=== PATIENT | female | born 1965 | race Caucasian/White ===

== ENCOUNTER 2020-04-19 06:06 | Observation (INO) ==
--- NOTE | 2020-03-11 09:54 | PAT Medication Instructions ---
Medication Instructions Date of Service March 11, 2020 Home Medications aspirin 81 mg PO QPM atorvastatin 40 mg PO PM cholecalciferol (vitamin D3) [Vitamin D3] 125 mcg PO QPM citalopram 30 mg PO HS glimepiride 8 mg PO QAM losartan [Cozaar] 50 mg PO QPM lutein 20 mg PO QPM metformin 1,000 mg PO BID montelukast 10 mg PO QPM omega-3 fatty acids-vitamin E [Fish Oil] 1 cap PO TID omeprazole 40 mg PO QAM repaglinide 2 mg PO TID semaglutide [Ozempic] 2 mg SUBCUT WK vitamin B complex 1 tab PO QPM zinc acetate 50 mg PO QPM Continue as directed semaglutide [Ozempic] 2 mg SUBCUT WK ASK your prescriber and surgeon aspirin 81 mg PO QPM STOP taking 2 weeks before surgery (or as soon as possible if surgery is within 2 weeks) omega-3 fatty acids-vitamin E [Fish Oil] 1 cap PO TID lutein 20 mg PO QPM DO NOT take the morning of surgery glimepiride 8 mg PO QAM metformin 1,000 mg PO BID repaglinide 2 mg PO TID Take morning of surgery With a small sip of water, OTHERWISE NOTHING TO EAT OR DRINK AFTER MIDNIGHT: omeprazole 40 mg PO QAM Take evening before surgery atorvastatin 40 mg PO PM cholecalciferol (vitamin D3) [Vitamin D3] 125 mcg PO QPM citalopram 30 mg PO HS losartan [Cozaar] 50 mg PO QPM metformin 1,000 mg PO BID montelukast 10 mg PO QPM repaglinide 2 mg PO TID vitamin B complex 1 tab PO QPM zinc acetate 50 mg PO QPM Other Notes If you have any questions please call us at [phone] or [phone] or [phone] or [phone]
--- NOTE | 2020-03-15 11:42 | Anesthesiology Consultation ---
Date of Service March 15, 2020 Assessment & Plan (1) Encounter for pre-operative examination: - Per assessment on 03/15: Travel screen negative. No known COVID-19 positive contacts or current COVID-19 related symptoms. Surgeon arranging preop COVID testing. Awaiting results. - S/P L4-L5 decompression/fusion: 04/07/15: Grade view 1, MAC#3, ETT 7 at [facility] - Check BSG AM DOS Chart Review Chart Review: Acceptable Risk for Surgery and Patient seen in Pre Admission Testing Teaching & Discussion Pre-Anesthesia Teaching/Discussion Notes: Instructed NPO after midnight before surgery,except medications with 15 cc of water. Medication instructions provided according to the PAT guidelines. History Surgery Operation Date: 03/29/20 11:25 Proposed Procedures p Spinal Cord Stimulator Trial - Adis Bello DO Operation Date: 03/31/20 11:05 Proposed Procedures p Spinal Cord Stimulator Placement - Adis Bello DO Height/Weight Height: 5 ft 7 in Weight: 95.8 kg Allergies Allergy/AdvReac Type Severity Reaction Status Date / Time metaxalone Allergy Unknown SOB, Verified 03/09/20 10:21 fatigue, hives Medications Home Medications Medication Instructions Recorded Confirmed Last Taken aspirin 81 mg PO QPM 03/09/20 03/09/20 Unknown atorvastatin 40 mg PO PM 03/09/20 03/09/20 Unknown cholecalciferol (vitamin D3) 125 mcg PO QPM 03/09/20 03/09/20 Unknown [Vitamin D3] citalopram 30 mg PO HS 03/09/20 03/09/20 Unknown glimepiride 8 mg PO QAM 03/09/20 03/09/20 Unknown losartan [Cozaar] 50 mg PO QPM 03/09/20 03/09/20 Unknown lutein 20 mg PO QPM 03/09/20 03/09/20 Unknown metformin 1,000 mg PO BID 03/09/20 03/09/20 Unknown montelukast 10 mg PO QPM 03/09/20 03/09/20 Unknown omega-3 fatty acids-vitamin E 1 cap PO TID 03/09/20 03/09/20 Unknown [Fish Oil] omeprazole 40 mg PO QAM 03/09/20 03/09/20 Unknown repaglinide 2 mg PO TID 03/09/20 03/09/20 Unknown semaglutide [Ozempic] 2 mg SUBCUT WK 03/09/20 03/09/20 Unknown vitamin B complex 1 tab PO QPM 03/09/20 03/09/20 Unknown zinc acetate 50 mg PO QPM 03/09/20 03/09/20 Unknown trazodone 100 mg PO HS 03/15/20 03/15/20 Unknown Past Medical History Medical History Asthma controlled Chronic back pain Chronic kidney disease stage 3 (avoiding NSAIDS) Degenerative disc disease Diabetes mellitus, type 2 NIDDM GERD (gastroesophageal reflux disease) controlled Hyperlipidemia Hypertension Migraine hx Osteoarthritis Peripheral neuropathy left foot Rheumatoid arthritis remotely diagnosed but told "in remission"/no recent issues or tx/no cervical ROM limitations Sarcoidosis of lung controlled, no recent issues Exercise / Class Metabolic Activity II 4-5 Yardwork/Stairs/Walk up hill Past Family History Family History Aunt Family hx of colon cancer, Onset Age: 60 Uncle Family hx of colon cancer, Onset Age: 60 Father Family history of diabetes mellitus Grandmother (Paternal) Family history of diabetes mellitus Other No family history of adverse response to anesthesia Past Surgical History Surgical History H/O lumbar discectomy History of bilateral tubal ligation History of bronchoscopy 15+ years ago History of colonoscopy History of dilatation and curettage Hx of lumpectomy benign (Left) with marker S/P epidural steroid injection S/P lumbar spinal fusion L4-L5 decompression/fusion: 04/07/15: Grade view 1, MAC#3, ETT 7 at [facility] Past Anesthesia History No Hx of Anesthesia Complications and No Family Hx of Anesthesia Complications History of PONV No Hx of PONV and No Hx of Motion Sickness Social History Smoking Status: Former smoker tobacco type: cigarettes Do You Dip or Chew Tobacco: No Smoking End Date: Quit 1990 Hx Alcohol Use: No Hx Substance Use: No substance use type: does not use Review of Systems Patient denies chest pain, shortness of breath, dyspnea on exertion, fever, chills, cough, wheezing, palpitations. Physical Exam Vital Signs VITALS BP 128/84 P 72 TEMP 98.1 SP02 96%RA RESP 16 PHYSICAL Full neck and c-spine range of motion. Full TMJ range of motion. TMD 3 finger breaths Mallampati Score 1 Dentition: missing molars Lungs: clear throughout to auscultation Cardiac: regular rate and rhythm, no murmurs noted Spine: normal Carotid arteries: negative bruit Extremities: no edema Testing Laboratory Results 03/15/20 11:59 03/15/20 11:59 PT 10.7 Seconds (9.0-12.0) 03/15/20 11:59 INR 1.0 (0.9-1.1) 03/15/20 11:59 APTT 26.2 Seconds (21.0-31.0) 03/15/20 11:59 Urine Color Yellow 03/15/20 11:59 Urine Appearance Clear (Clear) 03/15/20 11:59 Urine pH 5.5 (4.5-7.5) 03/15/20 11:59 Ur Specific [place] 1.013 (1.000-1.030) 03/15/20 11:59 Urine Protein Negative (Negative) 03/15/20 11:59 Urine Glucose (UA) Negative (Negative) 03/15/20 11:59 Urine Ketones Negative (Negative) 03/15/20 11:59 Urine Nitrite Negative (Negative) 03/15/20 11:59 Ur Leukocyte Esterase Negative (Negative) 03/15/20 11:59 Blood Type AB Positive 03/15/20 11:59 Antibody Screen NEGATIVE 03/15/20 11:59 01/30/20 HGBA1C 7.2% Electrocardiogram Date: 03/15/20 NSR at 69bpm. Nondiagnostic inferior Q waves. No significant change compared to 03/23/2015 per porter sample case review. Good functional status/no cardiopulmonary complaints per PAT visit 03/15/20* Chest X-Ray Date: 03/15/20 FINDINGS: Cardiomediastinal and hilar silhouettes are within normal limits. No pneumothorax, pleural effusion, airspace consolidation or overt pulmonary edema. Bones of the chest appear grossly intact. IMPRESSION: No acute process.
--- NOTE | 2020-03-15 12:30 | XRay Report ---
XR chest Pre-admission PA/Lat HISTORY: 54 years-old Female pat preoperative exam. No acute chest complaints COMPARISON: Chest radiograph 03/23/2015 TECHNIQUE: PA and lateral views of the chest FINDINGS: Cardiomediastinal and hilar silhouettes are within normal limits. No pneumothorax, pleural effusion, airspace consolidation or overt pulmonary edema. Bones of the chest appear grossly intact. IMPRESSION: No acute process. ACT 112: Negative or not required by law. The above report was generated using voice recognition software. It may contain grammatical, syntax o r spelling errors. Electronically signed by: Fawad Garland M.D. 03/15/2020 12:29 PM
--- NOTE | 2020-03-15 13:06 | Electrocardiogram Report ---
Test Reason : Blood Pressure : / mmHG Vent. Rate : 069 BPM Atrial Rate : 069 BPM P-R Int : 156 ms QRS Dur : 092 ms QT Int : 398 ms P-R-T Axes : 036 064 058 degrees QTc Int : 426 ms Normal sinus rhythm Nondiagnostic inferior Q waves Borderline ECG When compared with ECG of 23-MAR-2015 14:38, No significant change was found Confirmed by Miguel Perez ([id number]) on 03/15/2020 1:06:41 PM Referred By: Adis Bello Confirmed By:Miguel Perez
[2020-03-15 13:31] LABS: Appearance Urine Clear (Clear); Bilirubin Urine Negative (Negative); Blood Urine Negative (Negative); Color Urine Yellow; Glucose Urine UA Negative (Negative); Ketones Urine Negative (Negative); Leukocyte Esterase Urine Negative (Negative); Nitrite Urine Negative (Negative); Protein Urine Negative (Negative); Specific Gravity Urine 1.013 (1.000-1.030); Urobilinogen Urine Negative (Negative); pH Urine 5.5 (4.5-7.5)
[2020-03-15 13:38] LABS: Basophils # (auto) 0.03 K/uL (0-0.2); Basophils % (auto) 0.5 %; Eosinophils # (auto) 0.12 K/uL (0-0.5); Eosinophils % (auto) 2.1 %; Hematocrit (blood only) 41.7 % (37-47); Hemoglobin 13.7 g/dL (12.0-16.0); Immature Granulocytes # (auto) 0.02 K/uL (0.00-0.02); Immature Granulocytes % (auto) 0.3 %; Lymphocytes % (auto) 38.4 %; Mean Corpuscular Hemoglobin 29.5 pg (25-34); Mean Corpuscular Hgb Conc 32.9 g/dL (32-36); Mean Corpuscular Volume 89.9 fL (80-100); Mean Platelet Volume 9.4 fL (7.4-10.4); Monocytes # (auto) 0.39 K/uL (0.11-0.59); Monocytes % (auto) 6.8 %; Neutrophils # (auto) 2.97 K/uL (1.4-6.5); Neutrophils % (auto) 51.9 %; Platelet Count 238 K/uL (130-400); RDW Coefficient of Variation 12.8 % (11.5-14.5); RDW Standard Deviation 41.4 fL (36.4-46.3); Red Blood Count 4.64 M/uL (4.2-5.4); White Blood Count 5.73 K/uL (4.8-10.8)
[2020-03-15 13:47] LABS: Partial Thromboplastin Ratio 0.9; Partial Thromboplastin Time 26.2 Seconds (21.0-31.0); Prothrombin Time 10.7 Seconds (9.0-12.0)
[2020-03-15 14:24] LABS: BUN Creatinine Ratio 20.1 (10-20); Calcium 9.5 mg/dl (8.5-10.1); Creatinine Clr Calc Pharmacy 110.5 ml/min; Est GFR (African American) 114.6; Est GFR (Non-African American) 98.9; Potassium 4.1 mmol/L (3.5-5.1)
[~2020-04-19 06:06] MED LIST: ACETAMINOPHEN 500 MG TAB PO SCH; CeleBREX 200 MG CAP PO SCH; GABAPENTIN 900 MG DOSE PO SCH; LR 15ML/HR IV SCH; LR 500ML BOLUS IV SCH; ceFAZolin 2000MG 2,000 MG/15 ML SYR IV SCH
--- OUTSIDE RECORDS SUMMARY | 2020-04-19 06:09 | External Medical Summary | Continuity of Care Document ---
:1965 Author Name Bailey Bahena Address Unavailable Unavailable , Care Team Providers Name Role Phone Johnnie GOODMAN M.D., P. Unavailable [email or web address] Unavailable Unavailable Unavailable Unavailable Unavailable Assessments Assessed Problems:Lumbosacral radiculopathy at S1 Problems Lumbosacral radiculopathy at S1 (724.4) (M54.17) Allergies and Adverse Reactions Allergy history not documented Medications Medications not documented Procedures Procedures not documented Immunizations Immunizations not documented Plan of Treatment Planned Observations Planned Goals not documented Results No Known Results Results not documented Encounters Appointment; Shelly Blair III, M.D. 08-Aug-2018 14:00 Encounter Diagnosis: Problem not documented
[2020-04-19] MEDS ORDERED: fentaNYL citrate 100 MCG/2 ML VIAL IV PRN (07:03)
[2020-04-19] MEDS ORDERED: ONDANSETRON INJ 2 MG/ML 2 ML VIAL IV PRN ×2 (07:03→09:58)
[2020-04-19] MEDS ORDERED: ATROPINE SULFATE 0.1 MG/ML 10ML SYR IV PRN (07:03)
[2020-04-19] MEDS ORDERED: MIDAZOLAM HCL 1 MG/ML 2ML VIAL ONE (07:05)
[2020-04-19] MEDS ORDERED: fentaNYL citrate 100 MCG/2 ML VIAL ONE ×2 (07:05→08:23)
[2020-04-19] MEDS ORDERED: BACITRACIN INJ 50,000 UNIT VIAL ONE (07:17)
[2020-04-19] MEDS ORDERED: BUPIVACAINE/EPINEPHRINE 0.5% MPF 1:200,000 30 ML VIAL ONE (07:17)
--- NOTE | 2020-04-19 07:28 | History & Physical Bridge Note ---
Date of Service April 19, 2020 History & Physical Bridge Note I have examined the patient, reviewed the History & Physical and in the interval since the performance of the History & Physical I have noted the following changes of clinical significance: no changes noted
--- NOTE | 2020-04-19 07:29 | History & Physical Report ---
Date of Service April 19, 2020 Assessment & Plan (1) Chronic back pain greater than 3 months duration: Admission and Anticipated Discharge Date Admission Date: Spinal cord stimulator trial History of Present Illness Chief Complaint: Chronic back and bilateral leg pain Primary Care Provider: Victor M Mccord PA-C This is a 54-year-old female presents with chronic persistent back and leg symptoms after failing course of nonoperative care she is here for surgical invention. Allergies Allergy/AdvReac Type Severity Reaction Status Date / Time metaxalone Allergy Severe SOB, Verified 04/19/20 06:39 fatigue, hives NSAIDS (Non-Steroidal AdvReac Mild per MD for Verified 04/19/20 06:39 Anti-Inflamma Stage 3 Kidney disease- Avoid NSAIDS Home Medications Medication Instructions Recorded Confirmed Type aspirin 81 mg PO QPM 03/09/20 04/19/20 History atorvastatin 40 mg PO PM 03/09/20 04/19/20 History cholecalciferol (vitamin D3) 125 mcg PO QPM 03/09/20 04/19/20 History [Vitamin D3] citalopram 40 mg PO HS 03/09/20 04/19/20 History glimepiride 8 mg PO QAM 03/09/20 04/19/20 History losartan [Cozaar] 50 mg PO QPM 03/09/20 04/19/20 History lutein 20 mg PO QPM 03/09/20 04/19/20 History metformin 1,000 mg PO BID 03/09/20 04/19/20 History montelukast 10 mg PO QPM 03/09/20 03/09/20 History omega-3 fatty acids-vitamin E 1 cap PO TID 03/09/20 03/09/20 History [Fish Oil] omeprazole 40 mg PO QAM 03/09/20 04/19/20 History repaglinide 2 mg PO TID 03/09/20 04/19/20 History semaglutide [Ozempic] 2 mg SUBCUT WK 03/09/20 04/19/20 History vitamin B complex 1 tab PO QPM 03/09/20 04/19/20 History zinc acetate 50 mg PO QPM 03/09/20 04/19/20 History trazodone 100 mg PO HS 03/15/20 04/19/20 History Past Med/Surg History Medical History (Updated 04/19/20 @ 07:29 by Adis Bello, DO) Asthma controlled Chronic back pain Chronic kidney disease stage 3 (avoiding NSAIDS) Degenerative disc disease Diabetes mellitus, type 2 NIDDM GERD (gastroesophageal reflux disease) controlled Hyperlipidemia Hypertension Migraine hx Osteoarthritis Peripheral neuropathy left foot Rheumatoid arthritis remotely diagnosed but told "in remission"/no recent issues or tx/no cervical ROM limitations Sarcoidosis of lung controlled, no recent issues Surgical History H/O lumbar discectomy History of bilateral tubal ligation History of bronchoscopy 15+ years ago History of colonoscopy History of dilatation and curettage Hx of lumpectomy benign (Left) with marker S/P epidural steroid injection S/P lumbar spinal fusion L4-L5 decompression/fusion: 04/07/15: Grade view 1, MAC#3, ETT 7 at [facility] Family History Aunt Family hx of colon cancer, Onset Age: 60 Uncle Family hx of colon cancer, Onset Age: 60 Father Family history of diabetes mellitus Grandmother (Paternal) Family history of diabetes mellitus Other No family history of adverse response to anesthesia Social History Smoking Status: Former smoker Smoking End Date: Quit 1990; Second Hand Exposure: Yes ( smokes in the home); Do You Dip or Chew Tobacco: No; Tobacco Cessation Education Requested by Patient: No Hx Alcohol Use: No Hx Substance Use: No Preferred Language: [place] Communication Ability: Effective Senior Game Developer Required: No Beliefs That Will Affect Care: None Current Living Situation: Spouse and Family Current Living Situation Comment: , daughter and son in law and 3 grandchildren. Other Information That Helps Us Care for You: No Feels Safe at Home: Yes Safety Concerns: Feels Safe At This Time Assistive Devices: Glasses Physical Exam Physical Exam: Patient is alert and oriented Heart regular rate and rhythm Lungs clear to auscultation Results & Data ([facility]) Vital Signs (Past 12 Hours) Vital Signs Temp Pulse Resp BP Pulse Ox 04/19/20 06:45 37.2 C 83 20 141/78 H 96
[2020-04-19] MEDS ORDERED: LIDOCAINE HCL 2% 2 ML VIAL/AMP(20MG/ML) INFIL ONE (08:03)
[2020-04-19] MEDS ORDERED: GLYCOPYRROLATE 0.2 MG/ML VIAL ONE (08:03)
[2020-04-19] MEDS ORDERED: ONDANSETRON INJ 2 MG/ML 2 ML VIAL ONE (08:03)
[2020-04-19] MEDS ORDERED: LARYING-O-JET KIT (LTA) ONE (08:03)
[2020-04-19] MEDS ORDERED: PROPOFOL IV EMULSION 10 MG/ML 20 ML VIAL IV ONE (08:03)
[2020-04-19] MEDS ORDERED: ROCURONIUM BROMIDE 10 MG/ML 5 ML VIAL IV ONE (08:03)
[2020-04-19] MEDS ORDERED: NEOSTIGMINE METHYLSULFATE 1 MG/ML 10ML VIAL ONE (08:03)
[2020-04-19] MEDS ORDERED: DEXAMETHASONE SOD INJ 4 MG/ML VIAL ONE (08:03)
[2020-04-19] MEDS ORDERED: FLOSEAL HEMOSTATIC MATRIX 10ML TOP ONE (08:18)
--- NOTE | 2020-04-19 08:39 | Operative Report ---
Post Operative Report Pre & Post Diagnosis Operation Date: 04/19/20 07:45 Pre-Op Diagnosis: Lumbar Postlaminectomy Syndrome Post-Op Diagnosis: Lumbar Postlaminectomy Syndrome Operation Date: 04/20/20 07:45 <No data on this case meets the specified criteria> I identified the patient and participated in the time-out.: Yes Procedure Operation Date: 04/19/20 07:45 Actual Procedures #1 T10 laminotomy. #2 placement of 16-lead dorsal column stimulator paddle extending from T8-T10. #3 placement of temporary leads. Operation Date: 04/20/20 07:45 <No data on this case meets the specified criteria> Surgeon Adis Bello, Boat Deckhand Lisseth Hernandez Estimated Blood Loss 10 Findings Consistent with Post-Op Diagnosis Specimens None Indications This is a 54-year-old female who presents with the above-mentioned diagnosis after failing course of nonoperative care is here for the above-mentioned procedure. Description of Procedure Patient was met with identified informed consent obtained. Patient was then taken to the operative suite underwent an patient placed in a prone position the Jama table on top of the Terell frame. All bony prominences well-padded eyes inspected to ensure no external pressure placed upon them. This point the thoracolumbar spine was prepped and draped in normal sterile fashion. With assistance of fluoroscopy identified the T10-T11 displacement midline incision was created overlying this region. Sharp dissection with assistance of Bovie cautery was performed down to and exposing the interlaminar space at T10-T11. I then performed a midline laminotomy. I then placed a 16-lead dorsal column stimulator paddle within the canal. It was able to extend to T8. Position was verified with fluoroscopy. The leads were then sewn into place. I then attached temporary leads and by way of a trocar around them to the left flank. It was attached to the temporary generator impedances verified incision was Subsequently irrigated and closed sterile dressing placed. Patient will continue PACU stable condition. Please note Lisseth Hernandez was present at the entire procedure involved in patient positioning complex portions of the surgery and final skin closure. I attest to the content of the Intraoperative Record and any orders documented therein. Any exceptions are noted below.
--- NOTE | 2020-04-19 09:15 | Fluoroscopy Report ---
FL spine 1V any level HISTORY: 54 years-old Female PAIN STIM TRIAL STATUS post placement of a neuro spinal stability devic e COMPARISON: Spot fluoroscopic images of the lumbar spine 04/07/2015 TECHNIQUE: One spot fluoroscopic image of the lumbar spine was obtained utilizing 5.8 seconds fluoros copy time FINDINGS: Spinal stimulator device is noted with distal leads overlying the location of what appears to be the T9 level. The imaged portions of the leads appear intact. Partially imaged metallic density retractio n device. IMPRESSION: Fluoroscopic assistance as above. ACT 112: Negative or not required by law. The above report was generated using voice recognition software. It may contain grammatical, syntax o r spelling errors. Electronically signed by: Fawad Garland M.D. 04/19/2020 9:14 AM
--- NOTE | 2020-04-19 09:27 | Anesthesiology Progress Note ---
Date of Service April 19, 2020 Anesthesia Post Procedure Vital Signs Vital Signs: Temp Pulse Pulse Resp BP BP Pulse Ox 04/19/20 09:25 76 14 114/67 96 04/19/20 09:15 80 16 122/70 97 04/19/20 09:05 82 19 127/74 98 04/19/20 08:55 36.6 C 83 16 132/69 99 04/19/20 06:45 37.2 C 83 20 141/78 H 96 Pain Intensity Lower Back: Pain Intensity: 8 Transfer of Care Handoff Completed per policy Notes Mental Status: alert / awake / arousable Patient Amnestic to Procedure: Yes Nausea / Vomiting: adequately controlled Pain: adequately controlled Airway Patency, RR, SpO2: stable & adequate BP & HR: stable & adequate Hydration State: stable & adequate Anesthetic Complications: no major complications apparent
[2020-04-19] MEDS ORDERED: ACETAMINOPHEN 500 MG TAB PO PRN (09:58)
[2020-04-19] MEDS ORDERED: SOD PHOSPHATE/SOD BIPHOSPHATE ENEMA 132 ML BTL PR PRN (09:58)
[2020-04-19] MEDS ORDERED: DO NOT ADMINISTER FLU VACCINE PRN (09:58)
[2020-04-19] MEDS ORDERED: bisacodyL 10 MG SUPP PR PRN (09:58)
[2020-04-19] MEDS ORDERED: NALOXONE HCL 0.4 MG/1 ML VIAL/CARP IV PRN (09:58)
[2020-04-19] MEDS ORDERED: GLIMEPIRIDE 2 MG TAB PO SCH (09:58)
[2020-04-19] MEDS ORDERED: PROMETHAZINE HCL 12.5 MG in SODIUM CHLORIDE 0.9% 50 ML IV PRN (09:58)
[2020-04-19] MEDS ORDERED: FAMOTIDINE 20 MG TAB PO PRN (09:58)
[2020-04-19] MEDS ORDERED: oxyCODONE HCL IR 5 MG TAB (IMMEDIATE RELEASE) PO PRN (09:58)
[2020-04-19] MEDS ORDERED: HYDROmorphone INJ 1 MG/ML SYRINGE IV PRN (09:58)
[2020-04-19] MEDS ORDERED: ONDANSETRON 4 MG OD TAB PO PRN (09:58)
[2020-04-19] MEDS ORDERED: diphenhydrAMINE Capsule 25 MG CAP PO PRN (09:58)
[2020-04-19] MEDS ORDERED: HYDROmorphone INJ 0.5 MG/0.5 ML SYR IV PRN (09:58)
[2020-04-19] MEDS ORDERED: NON-FORMULARY MEDICATION (Semaglutide [Ozempic] 1 mg/dose (2 mg/1.5 mL) Pen Injector) SQ SCH (09:58)
[2020-04-19] MEDS ORDERED: LORazepam 0.5 MG/1 ML VIAL IV PRN (09:58)
[2020-04-19] MEDS ORDERED: ALUMINUM/MAGNESIUM SUSP 30 ML UDC PO PRN (09:58)
[2020-04-19] MEDS ORDERED: METOCLOPRAMIDE HCL INJ 5 MG/ML 2 ML VIAL IV PRN (09:58)
[2020-04-19] MEDS ORDERED: ACETAMINOPHEN 1,000 MG/100 ML VIAL IV PRN (09:58)
[2020-04-19] MEDS ORDERED: hydrOXYzine HCl 25 MG TAB PO PRN (09:58)
[2020-04-19] MEDS ORDERED: LORazepam 0.5 MG TAB PO PRN (09:58)
[2020-04-19] MEDS ORDERED: MAGNESIUM HYDROXIDE SUSP 30 ML UDC PO PRN (09:58)
[2020-04-19] MEDS ORDERED: DO NOT ADMINISTER PNEUMOCOCCAL VACCINE PRN (09:58)
[2020-04-19] MEDS ORDERED: REPAGLINIDE 1 MG TAB PO SCH (09:58)
[2020-04-19] MEDS ORDERED: PHARMACY GLYCEMIC MGMT CONSULT PRN (10:09)
[2020-04-19] MEDS ORDERED: INSULIN GLARGINE SOLOSTAR 100 UNITS/ML 3 ML PEN SC ONE ×2 (10:15→21:00)
[2020-04-19] MEDS: INSULIN ASPART 100 UNITS/ML 3 ML PEN SC SCH ×4 (11:30→20:51)
[2020-04-19] MEDS: LACTATED RINGER'S 1,000 ML IV SCH ×2 (11:32→21:42)
[2020-04-19] MEDS: traMADol HCL 50 MG TABLET PO PRN ×3 (14:11→21:42)
--- NOTE | 2020-04-19 15:16 | Pharmacy Report ---
Pharmacy Glycemic Short Note 2 - Date of Service April 19, 2020 - Glycemic Short BSG Results (Last 24 hours): 04/19/20 04/19/20 04/19/20 06:26 10:15 12:23 POC Glucose 140 H 144 H 195 H OUTPATIENT ANTIDIABETIC REGIMEN: * Amaryl 8mg PO qAM * Metformin 1000mg PO BID * Prandin 2mg PO TID * Ozempic 2mg SQ weekly * HbA1c: pending with AM labs 04/20 ASSESSMENT: * Ms Willis is a type 2 diabetic female, POD 0 s/p lumbar procedure this morning w/ Dr Bello. * Patient received IV dexamethasone pre-op, which may contribute to steroid- induced hyperglycemia. * Outpt antidiabetic regimen held on admission and pt initiated on basal/bolus insulin regimen. PLAN FOR INPATIENT GLYCEMIC CONTROL: * Hold outpatient oral diabetes medications * Basal insulin * Lantus 20 units SQ x1 dose post-op, then * Lantus x1 dose HS this evening per scale (see EMR for details) * Bolus insulin * NovoLog per scale ACHS or Q6hrs while NPO * Goal Range: Low 110 mg/dL - High 140 mg/dL * Correction Factor: 15 mg/dL/unit * Nutritional / Prandial insulin per carb ratio of 1 unit per 6 grams CHO consumed PLAN FOR DISCHARGE: * pending A1c results
[2020-04-19] MEDS: ceFAZolin 2000MG 2,000 MG/15 ML SYR IV SCH (16:53)
[2020-04-19] MEDS ORDERED: CITALOPRAM 40 MG TAB PO SCH (21:00)
[2020-04-19] MEDS ORDERED: traZODone HCL 100 MG TAB PO SCH (21:00)
[2020-04-19] MEDS ORDERED: MONTELUKAST SODIUM 10 MG TABLET PO SCH (21:00)
[2020-04-19] MEDS ORDERED: LOSARTAN POTASSIUM 50 MG TAB PO SCH (21:00)
[2020-04-19] MEDS ORDERED: NON-FORMULARY MEDICATION (Lutein 20 mg Capsule) PO SCH (21:00)
[2020-04-19] MEDS ORDERED: DOCUSATE SODIUM/SENNA 50/8.6MG TAB PO SCH (21:00)
[2020-04-19] MEDS ORDERED: CHOLECALCIFEROL 1,000 UNITS 25 MCG TAB PO SCH (21:00)
[2020-04-19] MEDS ORDERED: ATORVASTATIN 40 MG TAB PO SCH (21:00)
[2020-04-19] MEDS ORDERED: ASPIRIN 81 MG ECTAB PO SCH (21:00)
[2020-04-20] MEDS: ceFAZolin 2000MG 2,000 MG/15 ML SYR IV SCH (00:09)
[2020-04-20] MEDS ORDERED: INSULIN ASPART 100 UNITS/ML 3 ML PEN SC SCH ×2 (06:00→11:30)
[2020-04-20] MEDS ORDERED: Nursing to Pharmacy Communication SCH ×2 (06:00→10:00)
[2020-04-20] MEDS: POLYETHYLENE (MIRALAX) 17 GM PACK PO SCH ×2 (06:15→12:07)
[2020-04-20 06:23] LABS: Estimated Average Glucose 146 mg/dl; Hemoglobin A1C 6.7 % (4.5-5.6)
[2020-04-20] MEDS ORDERED: BUPIVACAINE/EPINEPHRINE 0.5% MPF 1:200,000 30 ML VIAL ONE (07:03)
[2020-04-20] MEDS ORDERED: BACITRACIN INJ 50,000 UNIT VIAL ONE (07:03)
[2020-04-20] MEDS ORDERED: MIDAZOLAM HCL 1 MG/ML 2ML VIAL ONE (07:05)
[2020-04-20] MEDS ORDERED: fentaNYL citrate 100 MCG/2 ML VIAL ONE (07:05)
--- NOTE | 2020-04-20 07:25 | History & Physical Bridge Note ---
Date of Service April 20, 2020 History & Physical Bridge Note I have examined the patient, reviewed the History & Physical and in the interval since the performance of the History & Physical I have noted the following changes of clinical significance: no changes noted Patient has successful trial and is here for spinal cord stimulator placement
--- NOTE | 2020-04-20 07:26 | Anesthesiology Consultation ---
Date of Service April 20, 2020 Assessment & Plan (1) Encounter for pre-operative examination: Chart Review Chart Review: Acceptable Risk for Surgery History Surgery Operation Date: 04/19/20 07:45 Proposed Procedures p Spinal Cord Stimulator Trial - Adis Bello DO Operation Date: 04/20/20 07:45 Proposed Procedures p Spinal Cord Stimulator Placement - Adis Bello DO Height/Weight Height: 5 ft 7 in Weight: 94.5 kg Allergies Allergy/AdvReac Type Severity Reaction Status Date / Time metaxalone Allergy Severe SOB, Verified 04/19/20 06:39 fatigue, hives NSAIDS (Non-Steroidal AdvReac Mild per MD for Verified 04/19/20 06:39 Anti-Inflamma Stage 3 Kidney disease- Avoid NSAIDS Medications Home Medications Medication Instructions Recorded Confirmed Last Taken aspirin 81 mg PO QPM 03/09/20 04/19/20 04/18/20 15:00 atorvastatin 40 mg PO PM 03/09/20 04/19/20 04/18/20 22:00 cholecalciferol (vitamin D3) 125 mcg PO QPM 03/09/20 04/19/20 04/18/20 22:00 [Vitamin D3] citalopram 40 mg PO HS 03/09/20 04/19/20 04/18/20 22:00 glimepiride 8 mg PO QAM 03/09/20 04/19/20 04/18/20 08:00 losartan [Cozaar] 50 mg PO QPM 03/09/20 04/19/20 04/18/20 22:00 lutein 20 mg PO QPM 03/09/20 04/19/20 Unknown metformin 1,000 mg PO BID 03/09/20 04/19/20 04/18/20 22:00 montelukast 10 mg PO QPM 03/09/20 03/09/20 Unknown omega-3 fatty acids-vitamin E 1 cap PO TID 03/09/20 03/09/20 Unknown [Fish Oil] omeprazole 40 mg PO QAM 03/09/20 04/19/20 04/19/20 05:00 repaglinide 2 mg PO TID 03/09/20 04/19/20 04/18/20 22:00 semaglutide [Ozempic] 2 mg SUBCUT WK 03/09/20 04/19/20 04/16/20 08:00 vitamin B complex 1 tab PO QPM 03/09/20 04/19/20 04/18/20 22:00 zinc acetate 50 mg PO QPM 03/09/20 04/19/20 04/18/20 22:00 trazodone 100 mg PO HS 03/15/20 04/19/20 04/18/20 22:00 oxycodone 5 mg PO Q6H PRN #15 tab 04/19/20 Unknown tramadol 50 mg PO Q6H PRN #20 tab 04/19/20 Unknown Active Medications Generic Name Dose Route Start Last Admin Trade Name Freq PRN Reason Stop Dose Admin Aspirin 81 mg 04/19/20 21:00 04/19/20 20:20 Aspirin 81 Mg Ectab PO 05/19/20 20:59 81 mg QPM JANIA Administration Atorvastatin Calcium 40 mg 04/19/20 21:00 04/19/20 20:20 Atorvastatin 40 Mg Tab PO 05/19/20 20:59 40 mg PM JANIA Administration Citalopram Hydrobromide 40 mg 04/19/20 21:00 04/19/20 20:20 Citalopram 40 Mg Tab PO 05/19/20 20:59 40 mg HS JANIA Administration Diphenhydramine HCl 25 mg 04/19/20 09:58 04/19/20 21:44 Diphenhydramine Capsule 25 Mg Cap PO 05/19/20 09:57 25 mg Q6H PRN Administration Allergic Rhinitis/Insomnia Acetaminophen 1,000 mg in 100 mls @ 400 mls/hr 04/19/20 09:58 04/19/20 15:49 Ofirmev IV 04/20/20 09:57 Infused Q8H PRN Infusion MILD Pain Rating 1,2,3 Lactated Ringer's 1,000 mls @ 100 mls/hr 04/19/20 09:58 04/19/20 21:42 Lr IV 05/19/20 09:57 100 mls/hr .Q10H JANIA Administration Insulin Aspart 0 units 04/20/20 06:00 04/20/20 06:35 Insulin Aspart 100 Units/Ml 3 Ml Pen SC 05/20/20 05:59 Not Given Q6 JANIA Protocol Losartan Potassium 50 mg 04/19/20 21:00 04/19/20 20:20 Losartan Potassium 50 Mg Tab PO 05/19/20 20:59 50 mg QPM JANIA Administration Montelukast Sodium 10 mg 04/19/20 21:00 04/19/20 20:21 Montelukast Sodium 10 Mg Tablet PO 05/19/20 20:59 10 mg QPM JANIA Administration Polyethylene Glycol 17 gm 04/20/20 06:00 04/20/20 06:15 Polyethylene (Miralax) 17 Gm Pack PO 05/20/20 05:59 Not Given Q6 JANIA Senna/Docusate Sodium 2 tab 04/19/20 21:00 04/19/20 20:21 Docusate Sodium/Senna 50/8.6mg Tab PO 05/19/20 20:59 2 tab HS JANIA Administration Tramadol HCl 50 - 100 mg 04/19/20 09:58 04/19/20 21:42 Tramadol Hcl 50 Mg Tablet PO 05/19/20 09:57 100 mg Q4H PRN Administration Moderate-Severe Pain & Pre PT Trazodone HCl 100 mg 04/19/20 21:00 04/19/20 20:20 Trazodone Hcl 100 Mg Tab PO 05/19/20 20:59 100 mg HS JANIA Administration Vitamin D 5,000 units 04/19/20 21:00 04/19/20 20:21 Cholecalciferol 1,000 Units 25 Mcg Tab PO 05/19/20 20:59 5,000 units QPM JANIA Administration NPO Date Last Intake of Fluids: 04/19/20 Time Last Intake of Fluids: 18:00 Last Intake of Fluids Comment: sip of water with meds this am 0500 Date Last Intake of Solids: 04/19/20 Time Last Intake of Solids: 18:00 Past Medical History Medical History Asthma controlled Chronic back pain Chronic kidney disease stage 3 (avoiding NSAIDS) Degenerative disc disease Diabetes mellitus, type 2 NIDDM GERD (gastroesophageal reflux disease) controlled Hyperlipidemia Hypertension Migraine hx Osteoarthritis Peripheral neuropathy left foot Rheumatoid arthritis remotely diagnosed but told "in remission"/no recent issues or tx/no cervical ROM limitations Sarcoidosis of lung controlled, no recent issues Exercise / Class Metabolic Activity II 4-5 Yardwork/Stairs/Walk up hill Past Family History Family History Aunt Family hx of colon cancer, Onset Age: 60 Uncle Family hx of colon cancer, Onset Age: 60 Father Family history of diabetes mellitus Grandmother (Paternal) Family history of diabetes mellitus Other No family history of adverse response to anesthesia Past Surgical History Surgical History H/O lumbar discectomy History of bilateral tubal ligation History of bronchoscopy 15+ years ago History of colonoscopy History of dilatation and curettage Hx of lumpectomy benign (Left) with marker S/P epidural steroid injection S/P lumbar spinal fusion L4-L5 decompression/fusion: 04/07/15: Grade view 1, MAC#3, ETT 7 at [facility] Past Anesthesia History No Hx of Anesthesia Complications History of PONV No Hx of PONV and No Hx of Motion Sickness Social History Smoking Status: Former smoker tobacco type: cigarettes Do You Dip or Chew Tobacco: No Smoking End Date: Quit 1990 Hx Alcohol Use: No Hx Substance Use: No substance use type: does not use Physical Exam Vital Signs Last Vital Signs Temp 36.8 C 04/20/20 06:37 Pulse 73 04/20/20 06:37 Resp 18 04/20/20 06:37 BP 128/80 04/20/20 06:37 Pulse Ox 94 04/20/20 06:37 Testing Laboratory Results 03/15/20 11:59 03/15/20 11:59 PT 10.7 Seconds (9.0-12.0) 03/15/20 11:59 INR 1.0 (0.9-1.1) 03/15/20 11:59 APTT 26.2 Seconds (21.0-31.0) 03/15/20 11:59 Hemoglobin A1c 6.7 % (4.5-5.6) H 04/20/20 05:49 Urine Color Yellow 03/15/20 11:59 Urine Appearance Clear (Clear) 03/15/20 11:59 Urine pH 5.5 (4.5-7.5) 03/15/20 11:59 Ur Specific Rombauer 1.013 (1.000-1.030) 03/15/20 11:59 Urine Protein Negative (Negative) 03/15/20 11:59 Urine Glucose (UA) Negative (Negative) 03/15/20 11:59 Urine Ketones Negative (Negative) 03/15/20 11:59 Urine Nitrite Negative (Negative) 03/15/20 11:59 Ur Leukocyte Esterase Negative (Negative) 03/15/20 11:59 Blood Type AB Positive 03/15/20 11:59 Antibody Screen NEGATIVE 03/15/20 11:59 04/20/20 04/19/20 06:09 20:47 POC Glucose 126 H 158 H
[2020-04-20] MEDS ORDERED: PROMETHAZINE HCL 6.25 MG in SODIUM CHLORIDE 0.9% 50 ML IV PRN (07:27)
[2020-04-20] MEDS ORDERED: ONDANSETRON INJ 2 MG/ML 2 ML VIAL IV PRN (07:27)
[2020-04-20] MEDS ORDERED: ATROPINE SULFATE 0.1 MG/ML 10ML SYR IV PRN (07:27)
[2020-04-20] MEDS ORDERED: HYDROmorphone INJ 1 MG/ML SYRINGE IV PRN (07:27)
[2020-04-20] MEDS ORDERED: INSULIN GLARGINE SOLOSTAR 100 UNITS/ML 3 ML PEN SC ONE ×2 (07:30→18:00)
[2020-04-20] MEDS ORDERED: LARYING-O-JET KIT (LTA) ONE (07:30)
[2020-04-20] MEDS ORDERED: ePHEDrine sulfate 50 MG/ML SYR ONE (07:30)
[2020-04-20] MEDS ORDERED: PHENYLEPHRINE 100MCG/ML 5ML SYR ONE (07:30)
[2020-04-20] MEDS ORDERED: LIDOCAINE HCL 2% 2 ML VIAL/AMP(20MG/ML) INFIL ONE (07:30)
[2020-04-20] MEDS ORDERED: GLYCOPYRROLATE 0.2 MG/ML VIAL ONE (07:30)
[2020-04-20] MEDS ORDERED: PROPOFOL IV EMULSION 10 MG/ML 20 ML VIAL IV ONE (07:30)
[2020-04-20] MEDS ORDERED: DEXAMETHASONE SOD INJ 4 MG/ML VIAL ONE (07:30)
[2020-04-20] MEDS ORDERED: NEOSTIGMINE METHYLSULFATE 1 MG/ML 10ML VIAL ONE (07:30)
[2020-04-20] MEDS ORDERED: ONDANSETRON INJ 2 MG/ML 2 ML VIAL ONE (07:30)
[2020-04-20] MEDS ORDERED: ROCURONIUM BROMIDE 10 MG/ML 5 ML VIAL IV ONE (07:30)
[2020-04-20] MEDS ORDERED: FLOSEAL HEMOSTATIC MATRIX 10ML TOP ONE (08:26)
--- NOTE | 2020-04-20 08:32 | Operative Report ---
Post Operative Report Pre & Post Diagnosis Operation Date: 04/19/20 07:45 Pre-Op Diagnosis: Lumbar Postlaminectomy Syndrome Post-Op Diagnosis: Lumbar Postlaminectomy Syndrome Operation Date: 04/20/20 07:45 Pre-Op Diagnosis: Lumbar Postlaminectomy Syndrome Post-Op Diagnosis: Lumbar Postlaminectomy Syndrome I identified the patient and participated in the time-out.: Yes Procedure Operation Date: 04/19/20 07:45 Actual Procedures p Spinal Cord Stimulator Trial - Adis Bello DO Operation Date: 04/20/20 07:45 Actual Procedures #1 removal of temporary stimulator leads. #2 implantation of spinal cord stimulator battery. Surgeon Adis Bello DO [employer] Lisseth Hernandez Estimated Blood Loss 10 Findings Consistent with Post-Op Diagnosis Specimens None Indications Patient had excellent coverage of her pain patterns with a spinal cord stimulator trial and is here for placement. Description of Procedure Patient met with preop Case discussed all questions addressed with heparin patient was taken back to op suite underwent an patient placed in a prone position the Jama table on top Terell frame. All bony prominences well- padded eyes inspected to ensure no external pressure placed upon them. This point the cervical lumbar spine was prepped and draped in a sterile fashion. I created a pocket over the right upper buttock large enough to hold the battery. I then reopened the laminotomy site to remove the temporary leads they were detached and removed without difficulty. By way of a trocar the leads were then taken to the battery pocket attached to the battery and tested for impedances. Once this was established the battery was placed within the pocket all incisions were copiously irrigated and closed with subcutaneous Vicryl and 4 Monocryl for final skin closure. Steri-Strip sterile dressings placed. Patient waken taken to PACU stable condition. Please note Lisseth Hernandez was present at the procedure assisting in positioning and final closure. I attest to the content of the Intraoperative Record and any orders documented therein. Any exceptions are noted below.
--- NOTE | 2020-04-20 08:36 | Discharge Summary ---
Date of Service April 20, 2020 Admission HPI Per Admitting Provider This is a 54-year-old female presents with chronic persistent back and leg symptoms after failing course of nonoperative care she is here for surgical invention. Principal Diagnosis Lumbar postlaminectomy syndrome Discharge Data Allergies Allergy/AdvReac Type Severity Reaction Status Date / Time metaxalone Allergy Severe SOB, Verified 04/19/20 06:39 fatigue, hives NSAIDS (Non-Steroidal AdvReac Mild per MD for Verified 04/19/20 06:39 Anti-Inflamma Stage 3 Kidney disease- Avoid NSAIDS Procedures Performed Operation Date: 04/19/20 07:45 Actual Procedures p Spinal Cord Stimulator Trial - Adis Bello DO Operation Date: 04/20/20 07:45 Actual Procedures p Spinal Cord Stimulator Placement(Not Applicable) - Adis Bello DO Ordered Studies 04/19/20 07:45 FL fluoroscopy <1hr Routine FL spine 1V any level Routine Hospital Course (1) Chronic back pain greater than 3 months duration: Patient underwent spinal cord stimulator trial tolerated this well was ta jt to orthopedic for postop bleed. Postoperatively she noted significant coverage of her pain patterns and elected to have final placement. The next day she underwent spinal cord stimulator placement tolerated this well was subsequently discharged home. Discharge orders and instructions from the chart for further review. Total Time Total Time Spent Total Time Spent (In Minutes): 20 minutes Discharge Plan Discharge Items Patient Disposition: Home - Self-Care Reason For Visit: Lumbar Postlaminectomy Syndrome Discharge Diagnosis: Lumbar postlaminectomy syndrome Activity: As commented below Non-emergency contact: Primary Care Provider Call non-emergency contact if: you have any medication questions Follow-up/Referrals: Victor M Mccord PA-C [Primary Care Provider] - Diet: Regular Addtl Attending Provider Instructions: ACTIVITY RECOMMENDATIONS: SELF CARE INSTRUCTIONS AFTER A LAMINECTOMY 1. No prolonged sitting (less than 30 minutes for the first 3 weeks after surgery). 2. No bending, lifting more than 5 pounds, or twisting (roll like a log when turning in bed). 3. You may shower 3 days after surgery if no drainage from wound. Thoroughly dry wound. Do not soak in the tub. 4. Please walk as much as you can for exercise. Gradually increase the distance that you walk as your endurance increases. 5. You may drive in 7-10 days if you are comfortable and no longer requiring pain medications. SPECIAL CARE INSTRUCTIONS: VERY IMPORTANT TO READ AND REVIEW A. Your surgical incision has been closed with a cosmetic suture under the skin that will dissolve in about 6 weeks. In 14 days, you can use a pair of clean scissors and cut the suture that is left outside of the skin at the ends of your incision. B. Complications are uncommon, but please contact us if you have any signs or symptoms of: 1. wound infection (fever higher than 102.5 degrees F, redness, separation of wound, drainage, or increasing pain from the incision) 2. blood clots in legs (pain, swelling, redness and warmth in legs) 3. urinary tract infection (fever higher than 102.5 degrees, burning upon urination or increased frequency of urination) 4. nerve problems (inability to walk on your toes or heels, numbness, loss of bowel or bladder control) 5. any other symptoms that concern you. C. Please call the office at if you have any concerns or questions about your operation or recovery. MANAGING PAIN AFTER SPINAL SURGERY 1. Narcotic medication is intended for short-term use and will be provided for surgical pain. Surgical pain usually lasts for a period of 4-6 weeks. Narcotic medication includes Percocet, Vicodin, Darvocet, Tylenol #3 or Lortab. 2. Longer-term pain is more appropriately treated with non-narcotic medication such as Tylenol ES. 3. Muscle spasm is not appropriately treated with narcotics. Muscle relaxers such as Soma, Flexeril or Skelaxin can be used along with Tylenol ES. 4. Remember that we all live with some "aches and pains". This is not unusual or uncommon after an injury or as we get older. 5. We will provide appropriate medication within the normal guidelines of their prescribed use. We will also be very cautious and aware of potential abuse and extended duration of patients' medication needs. 6. Please allow 2-3 days to process refills. Prescriptions will not be mailed but must be picked up at the office. FOLLOW UP VISIT: Keep your scheduled follow-up appointment. Any questions, please call the office at . Pending Studies at Discharge: No Stand-Alone Forms: [facility], Smoking Cessation Medications and DC Order Prescriptions: New tramadol 50 mg tablet 50 mg PO Q6H PRN (Reason: pain, moderate) Qty: 20 RF: 0 oxycodone 5 mg tablet 5 mg PO Q6H PRN (Reason: pain, severe) Qty: 15 RF: 0 Continued losartan [Cozaar] 50 mg Tablet 50 mg PO QPM RF: 0 atorvastatin 40 mg Tablet 40 mg PO PM RF: 0 repaglinide 2 mg Tablet 2 mg PO TID RF: 0 omeprazole 40 mg Capsule,Delayed Release(Dr/Ec) 40 mg PO QAM RF: 0 aspirin 81 mg Tablet,Delayed Release (Dr/Ec) 81 mg PO QPM RF: 0 citalopram 20 mg Tablet 40 mg PO HS RF: 0 metformin 1,000 mg Tablet 1,000 mg PO BID RF: 0 glimepiride 4 mg Tablet 8 mg PO QAM RF: 0 vitamin B complex Tablet 1 tab PO QPM RF: 0 montelukast 10 mg Tablet 10 mg PO QPM RF: 0 Fish Oil 1,000 mg Capsule 1 cap PO TID RF: 0 lutein 20 mg Capsule 20 mg PO QPM RF: 0 cholecalciferol (vitamin D3) [Vitamin D3] 125 mcg (5,000 unit) Tablet 125 mcg PO QPM RF: 0 Ozempic 1 mg/dose (2 mg/1.5 mL) Pen Injector 2 mg SUBCUT WK RF: 0 zinc acetate 50 mg (zinc) Capsule 50 mg PO QPM RF: 0 trazodone 50 mg Tablet 100 mg PO HS RF: 0 Discharge Orders: Discharge Order (Routine); Ordered 04/20/20 Ordered By: Adis Rodriguez/Other Patient Handouts: Managing Type 2 Diabetes Admission Data Admit Date/Time: 04/19/20 09:04 Attending Provider: Adis Bello Admit Provider: Adis Bello Primary Care Provider: Victor M Mccord
[2020-04-20] MEDS ORDERED: PANTOprazole 40 MG TAB PO SCH (09:00)
[2020-04-20] MEDS: LACTATED RINGER'S 1,000 ML IV SCH (09:44)
--- NOTE | 2020-04-20 09:48 | Anesthesiology Progress Note ---
Date of Service April 20, 2020 Anesthesia Post Procedure Vital Signs Vital Signs: Temp Pulse Pulse Resp BP Pulse Ox 04/20/20 09:26 69 11 L 125/73 96 04/20/20 09:20 36.5 C 69 13 128/74 95 04/20/20 09:15 70 12 122/71 96 04/20/20 09:05 67 10 L 120/71 99 04/20/20 08:55 68 10 L 126/73 99 04/20/20 08:48 36.6 C 89 13 131/76 99 04/20/20 06:37 36.8 C 73 18 128/80 94 04/20/20 06:28 36.5 C 77 14 142/84 H 95 04/20/20 04:05 36.6 C 77 14 117/71 95 04/19/20 23:02 36.4 C L 79 14 124/72 93 04/19/20 20:30 36.6 C 84 18 129/77 92 04/19/20 15:15 36.7 C 96 H 21 128/86 95 04/19/20 13:38 36.6 C 96 H 16 138/75 92 04/19/20 12:00 91 H 16 128/75 98 04/19/20 11:16 82 16 121/80 97 04/19/20 10:36 94 H 16 131/80 98 04/19/20 10:00 36.6 C 90 16 121/76 97 Pain Intensity Lower Back: Pain Intensity: 8 Transfer of Care Handoff Completed per policy Notes Mental Status: alert / awake / arousable Patient Amnestic to Procedure: Yes Nausea / Vomiting: adequately controlled Pain: adequately controlled Airway Patency, RR, SpO2: stable & adequate BP & HR: stable & adequate Hydration State: stable & adequate Anesthetic Complications: no major complications apparent
== END 2020-04-20 14:40 | disposition home or self-care (01) ==
LOC: ASU 06:06 → 3E 09:04 → INTOOBSV 09:04